=== PATIENT | female | born 1940 | race Caucasian/White ===

== ENCOUNTER 2018-02-11 17:09 | Inpatient (IN) | payer MEDICARE, OTHER ==
[~2018-02-11] VITALS: Ht 160 cm; Wt 105.3 kg
[~2018-02-11 17:09] MED LIST: ALLO100T30 PO; AMLO5TAB7 PO; ASCO-96 PO; ASPI-515 PO; ATOR40TA78 PO; CARV12.52 PO; CLON0.1T PO; CLON0.25 PO; FURO20TA3 PO; GABA-826 PO; HYDR-3237 PO; INSU100V8 SQ; LEVO50TA5 PO; METH454P PO; NOVALOG SC; OMEGA 3 PO; SITA50TA PO; SLOW MAG PO; SOLI5TAB2 PO; VALS160T3 PO
[2018-02-11 18:00] LABS: BASOPHILS # (AUTO) 0.06 x10^3/uL (0-0.1); BASOPHILS % (AUTO) 0 % (0-1); EOSINOPHILS # (AUTO) 0.16 x10^3/uL (0-0.4); EOSINOPHILS % (AUTO) 1 % (1-7); LYMPHOCYTES # (AUTO) 1.92 x10^3/uL (1-3.4); LYMPHOCYTES % (AUTO) 13 % (22-44); MD NO; MEAN CORPUSCULAR HGB CONC 33.2 g/dL (32.4-35.8); MEAN CORPUSCULAR VOLUME 96.2 fL (80-100); MEAN PLATELET VOLUME 8.5 fL (7.4-10.4); MONOCYTES # (AUTO) 1.08 x10^3/uL (0.2-0.8); MONOCYTES % (AUTO) 8 % (2-9); NEUTROPHILS # (AUTO) 11.16 x10^3/uL (1.8-6.8); NEUTROPHILS % (AUTO) 78 % (42-75); PLATELET COUNT 359 x10^3/uL (130-400); RED BLOOD COUNT 4.56 x10^6/uL (3.82-5.3); RED CELL DISTRIBUTION WIDTH 16.7 % (9.6-15.2)
[2018-02-11 18:08] LABS: ALBUMIN 2.9 g/dL (3.4-5.0); ANION GAP 5 mmol/L (5-15); CALCIUM 9.7 mg/dL (8.5-10.1); CHLORIDE 113 mmol/L (98-107)
[2018-02-11 18:13] LABS: ALANINE AMINOTRANSFERASE 24 U/L (12-78); ALKALINE PHOSPHATASE 200 U/L (45-117); BILIRUBIN,TOTAL 1.1 mg/dL (0.2-1.0); TOTAL PROTEIN 5.8 g/dL (6.4-8.2)
[2018-02-11] MEDS ORDERED: LORA0.5T PO (18:14)
[2018-02-11] MEDS ORDERED: CEFTRIAXONE 1,000 MG in SODIUM CHLORIDE 0.9% 50 ML IVPB ONE (19:00)
[2018-02-11] MEDS ORDERED: CEFTRIAXONE PMX 1GM/50ML 50 ML ONE (19:33)
[2018-02-11] MEDS ORDERED: ACETAMINOPHEN 325 MG TABLET PO PRN (20:30)
[2018-02-11] MEDS ORDERED: POLYETHYLENE GLYCOL 17 GM PACKET PO PRN (20:30)
[2018-02-11] MEDS ORDERED: GABAPENTIN 300 MG CAPSULE PO PRN (20:30)
[2018-02-11] MEDS ORDERED: PROMETHAZINE 25 MG/ML, 1ML IM PRN (20:30)
[2018-02-11] MEDS ORDERED: ONDANSETRON 2MG/ML, 2ML IVPush PRN (20:30)
[2018-02-11] MEDS ORDERED: morphine SULFATE 10 MG/ML, 1ML IVPush PRN (20:30)
[2018-02-11] MEDS ORDERED: FUROSEMIDE 40 MG/4 ML IV ONE (20:30)
[2018-02-11] MEDS ORDERED: OXYcodone/APAP 5/325MG TABLET PO PRN (20:30)
[2018-02-11] MEDS ORDERED: ONDANSETRON ODT 4 MG PO PRN (20:30)
[2018-02-11] MEDS ORDERED: SODIUM CHLORIDE FLUSH 10ML SYR IVF PRN (20:30)
[2018-02-11] MEDS ORDERED: BISACODYL 10 MG SUPP PR PRN (20:30)
[2018-02-11 20:57] LABS: FREE T4 (FREE THYROXINE) 1.54 ng/dL (0.76-1.46); THYROID STIMULATING HORMONE 2.4 mIU/L (0.358-3.740)
[2018-02-11 20:58] LABS: HEMOGLOBIN A1C 7.7 % (4.2-6.3)
[2018-02-11] MEDS ORDERED: CLONIDINE HCL 0.5 MG PO SCH (21:00)
[2018-02-11] MEDS: INSULIN LISPRO 100 UNITS/ML, PEN SQ-INSULIN SCH (21:00)
[2018-02-11] MEDS ORDERED: ENOXAPARIN 40 MG/0.4 ML SQ SCH (21:30)
[2018-02-11] MEDS: GABAPENTIN 100 MG CAPSULE PO SCH (21:35)
[2018-02-11] MEDS: ATORVASTATIN 40 MG TABLET PO SCH (21:35)
[2018-02-11] MEDS: ALLOPURINOL 100 MG TABLET PO SCH (21:35)
[2018-02-11] MEDS: CEFTAROLINE 600 MG in SODIUM CHLORIDE 0.9% 100 ML IV SCH (21:59)
[2018-02-11] MEDS: OXYBUTYNIN CHLORIDE 5 MG TABLET PO SCH (21:59)
[2018-02-11] MEDS: INSULIN GLARGINE 100 UNITS/ML, PEN SQ-INSULIN SCH (22:01)
[2018-02-11 22:50] VITALS: BP 200/94
[2018-02-11 23:00] VITALS: BP 198/94
[2018-02-11 23:15] VITALS: BP 185/82
[2018-02-12] MEDS: LABETALOL 5MG/ML, 20ML IVPush PRN ×3 (00:15→17:22)
[2018-02-12 00:23] LABS: MICROSCOPIC INDICATED
[2018-02-12 00:25] LABS: CULTURE INDICATED? NO
[2018-02-12 02:00] VITALS: BP 198/94
[2018-02-12] MEDS: hydrALAzine 20 MG/ML, 1ML IVPush PRN (03:14)
[2018-02-12 05:31] VITALS: BP 184/71
[2018-02-12] MEDS: LEVOTHYROXINE 50 MCG TABLET PO SCH (05:31)
[2018-02-12] MEDS: CARVEDILOL 6.25 MG TABLET PO SCH ×2 (05:31→17:17)
[2018-02-12 05:44] LABS: BASOPHILS # (AUTO) 0.04 x10^3/uL (0-0.1); BASOPHILS % (AUTO) 0 % (0-1); EOSINOPHILS # (AUTO) 0.15 x10^3/uL (0-0.4); EOSINOPHILS % (AUTO) 1 % (1-7); LYMPHOCYTES # (AUTO) 1.88 x10^3/uL (1-3.4); LYMPHOCYTES % (AUTO) 13 % (22-44); MD NO; MEAN CORPUSCULAR HEMOGLOBIN 32.1 pg (27.0-34.8); MEAN CORPUSCULAR VOLUME 97.2 fL (80-100); MEAN PLATELET VOLUME 8.9 fL (7.4-10.4); MONOCYTES # (AUTO) 1.42 x10^3/uL (0.2-0.8); MONOCYTES % (AUTO) 10 % (2-9); NEUTROPHILS % (AUTO) 77 % (42-75); PLATELET COUNT 322 x10^3/uL (130-400); RED CELL DISTRIBUTION WIDTH 16.4 % (9.6-15.2)
[2018-02-12 05:57] LABS: CHLORIDE 111 mmol/L (98-107)
[2018-02-12 06:08] LABS: ALANINE AMINOTRANSFERASE 20 U/L (12-78); ALBUMIN 2.5 g/dL (3.4-5.0); ALKALINE PHOSPHATASE 175 U/L (45-117); ANION GAP 10 mmol/L (5-15); BILIRUBIN,TOTAL 0.7 mg/dL (0.2-1.0); CALCIUM 8.9 mg/dL (8.5-10.1); CHOL/HDL RATIO 2.1; CHOLESTEROL, TOTAL 107 mg/dL (140-239); CREATININE 1.06 mg/dL (0.55-1.02); HDL CHOL % 49 % (28-40); HDL CHOLESTEROL (DIRECT) 52 mg/dL (40-60); LDL CHOLESTEROL,CALCULATED 36 mg/dL (54-169); LDL/HDL RATIO 0.7 (0.5-3.0); TOTAL PROTEIN 5.4 g/dL (6.4-8.2); TRIGLYCERIDES 95 mg/dL (50-200); VLDL CHOLESTEROL 19 mg/dL (0-25)
[2018-02-12 06:44] VITALS: BP 164/67
[2018-02-12] MEDS: INSULIN LISPRO 100 UNITS/ML, PEN SQ-INSULIN SCH ×4 (07:00→21:36)
[2018-02-12] MEDS ORDERED: FUROSEMIDE 20 MG/2 ML IV SCH (07:30)
[2018-02-12] MEDS ORDERED: LINAGLIPTIN 5 MG TAB PO SCH (09:00)
[2018-02-12] MEDS: LORazepam 0.5MG TABLET PO SCH (10:00)
[2018-02-12] MEDS: ASPIRIN 81 MG TABLET EC PO SCH (10:00)
[2018-02-12] MEDS: AMLODIPINE 10 MG TAB PO SCH (10:00)
[2018-02-12] MEDS: ASCORBIC ACID 500 MG TABLET PO SCH (10:00)
[2018-02-12] MEDS: OXYBUTYNIN CHLORIDE 5 MG TABLET PO SCH ×2 (10:00→21:35)
[2018-02-12] MEDS: GABAPENTIN 100 MG CAPSULE PO SCH ×2 (10:00→21:34)
[2018-02-12] MEDS: CEFTAROLINE 600 MG in SODIUM CHLORIDE 0.9% 100 ML IV SCH ×2 (10:01→21:37)
[2018-02-12] MEDS: VALSARTAN 160 MG TABLET PO SCH (10:01)
[2018-02-12] MEDS: ALLOPURINOL 100 MG TABLET PO SCH ×2 (10:01→21:35)
[2018-02-12] MEDS ORDERED: PHARMACY MAY ADJ FOR RENAL FX MC PRN (11:30)
[2018-02-12 12:19] VITALS: BP 178/71
[2018-02-12] MEDS: DOCUSATE 100 MG CAPSULE PO PRN ×2 (17:34→23:26)
[2018-02-12 20:00] VITALS: BP 150/72
[2018-02-12] MEDS: ATORVASTATIN 40 MG TABLET PO SCH (21:34)
[2018-02-12] MEDS: INSULIN GLARGINE 100 UNITS/ML, PEN SQ-INSULIN SCH (21:37)
[2018-02-13 02:00] VITALS: BP 147/68
[2018-02-13] MEDS: LEVOTHYROXINE 50 MCG TABLET PO SCH (05:13)
[2018-02-13] MEDS: CARVEDILOL 6.25 MG TABLET PO SCH ×2 (05:14→17:41)
[2018-02-13 07:31] VITALS: BP_SYST 145; BP_SYST 162; BP_DIAS 58; BP_DIAS 60
[2018-02-13] MEDS: INSULIN LISPRO 100 UNITS/ML, PEN SQ-INSULIN SCH ×4 (08:33→21:09)
[2018-02-13] MEDS: OXYBUTYNIN CHLORIDE 5 MG TABLET PO SCH ×2 (08:34→21:06)
[2018-02-13] MEDS: ASCORBIC ACID 500 MG TABLET PO SCH (08:34)
[2018-02-13] MEDS: ALLOPURINOL 100 MG TABLET PO SCH ×2 (08:34→21:07)
[2018-02-13] MEDS: ASPIRIN 81 MG TABLET EC PO SCH (08:34)
[2018-02-13] MEDS: GABAPENTIN 100 MG CAPSULE PO SCH ×2 (08:34→21:07)
[2018-02-13] MEDS: AMLODIPINE 10 MG TAB PO SCH (08:34)
[2018-02-13] MEDS: LORazepam 0.5MG TABLET PO SCH (08:34)
[2018-02-13] MEDS: VALSARTAN 160 MG TABLET PO SCH (08:34)
[2018-02-13] MEDS: CEFTAROLINE 600 MG in SODIUM CHLORIDE 0.9% 100 ML IV SCH ×2 (09:16→21:10)
[2018-02-13] MEDS ORDERED: FUROSEMIDE 40 MG/4 ML IV ONE (10:30)
[2018-02-13] MEDS ORDERED: POTASSIUM CHLORIDE 20 MEQ TAB.ER.PRT PO ONE (10:30)
[2018-02-13 12:12] LABS: MEAN CORPUSCULAR HEMOGLOBIN 31.6 pg (27.0-34.8); MEAN CORPUSCULAR HGB CONC 32.9 g/dL (32.4-35.8); MEAN CORPUSCULAR VOLUME 96.3 fL (80-100); MEAN PLATELET VOLUME 8.4 fL (7.4-10.4); PLATELET COUNT 303 x10^3/uL (130-400); RED BLOOD COUNT 4.18 x10^6/uL (3.82-5.3)
[2018-02-13 12:23] LABS: ANION GAP 9 mmol/L (5-15); CALCIUM 9.4 mg/dL (8.5-10.1); CHLORIDE 109 mmol/L (98-107); CREATININE 1.39 mg/dL (0.55-1.02)
[2018-02-13 12:34] VITALS: BP 157/64
[2018-02-13 13:16] LABS: BASOPHILS # (AUTO) 0.09 x10^3/uL (0-0.1); BASOPHILS % (AUTO) 0 % (0-1); EOSINOPHILS # (AUTO) 0.16 x10^3/uL (0-0.4); EOSINOPHILS % (AUTO) 1 % (1-7); LYMPHOCYTES # (AUTO) 1.37 x10^3/uL (1-3.4); LYMPHOCYTES % (AUTO) 7 % (22-44); MD SCAN; MONOCYTES # (AUTO) 1.06 x10^3/uL (0.2-0.8); MONOCYTES % (AUTO) 6 % (2-9); NEUTROPHILS # (AUTO) 16.52 x10^3/uL (1.8-6.8); NEUTROPHILS % (AUTO) 86 % (42-75)
[2018-02-13 18:26] VITALS: BP 156/93
[2018-02-13] MEDS: ATORVASTATIN 40 MG TABLET PO SCH (21:06)
[2018-02-13] MEDS: INSULIN GLARGINE 100 UNITS/ML, PEN SQ-INSULIN SCH (21:10)
[2018-02-14] VITALS (7 sets, daily range): BP systolic 149–196; BP diastolic 60–74
[2018-02-14 05:34] LABS: ANION GAP 9 mmol/L (5-15); CALCIUM 8.8 mg/dL (8.5-10.1); CHLORIDE 111 mmol/L (98-107)
[2018-02-14] MEDS: CARVEDILOL 6.25 MG TABLET PO SCH ×2 (05:35→17:27)
[2018-02-14] MEDS: LEVOTHYROXINE 50 MCG TABLET PO SCH (05:35)
[2018-02-14 05:36] LABS: CREATININE 1.34 mg/dL (0.55-1.02)
[2018-02-14 05:42] LABS: BASOPHILS # (AUTO) 0.06 x10^3/uL (0-0.1); BASOPHILS % (AUTO) 1 % (0-1); EOSINOPHILS % (AUTO) 2 % (1-7); LYMPHOCYTES # (AUTO) 1.66 x10^3/uL (1-3.4); LYMPHOCYTES % (AUTO) 12 % (22-44); MD NO; MEAN CORPUSCULAR HGB CONC 32.7 g/dL (32.4-35.8); MEAN CORPUSCULAR VOLUME 97.8 fL (80-100); MONOCYTES # (AUTO) 1.22 x10^3/uL (0.2-0.8); MONOCYTES % (AUTO) 9 % (2-9); NEUTROPHILS # (AUTO) 10.59 x10^3/uL (1.8-6.8); NEUTROPHILS % (AUTO) 77 % (42-75); PLATELET COUNT 283 x10^3/uL (130-400); RED CELL DISTRIBUTION WIDTH 16.9 % (9.6-15.2)
[2018-02-14] MEDS: INSULIN LISPRO 100 UNITS/ML, PEN SQ-INSULIN SCH ×4 (07:00→21:59)
[2018-02-14] MEDS: VALSARTAN 160 MG TABLET PO SCH (07:58)
[2018-02-14] MEDS ORDERED: MAGNESIUM SULFATE PMX 2GM/50ML 50 ML IV ONE (08:00)
[2018-02-14] MEDS: AMLODIPINE 10 MG TAB PO SCH (08:12)
[2018-02-14] MEDS: ALLOPURINOL 100 MG TABLET PO SCH ×2 (08:12→21:57)
[2018-02-14] MEDS: ASCORBIC ACID 500 MG TABLET PO SCH (08:12)
[2018-02-14] MEDS: ASPIRIN 81 MG TABLET EC PO SCH (08:12)
[2018-02-14] MEDS: LORazepam 0.5MG TABLET PO SCH (08:12)
[2018-02-14] MEDS: GABAPENTIN 100 MG CAPSULE PO SCH ×2 (08:12→21:57)
[2018-02-14] MEDS: OXYBUTYNIN CHLORIDE 5 MG TABLET PO SCH ×2 (08:16→21:57)
[2018-02-14] MEDS: CEFTAROLINE 600 MG in SODIUM CHLORIDE 0.9% 100 ML IV SCH ×2 (11:26→21:57)
[2018-02-14] MEDS ORDERED: FURO40TA6 PO (14:49)
[2018-02-14] MEDS ORDERED: CEFD300C37 PO (14:49)
[2018-02-14] MEDS ORDERED: DOXY100T PO (14:49)
[2018-02-14] MEDS: hydrALAzine 20 MG/ML, 1ML IVPush PRN (16:06)
[2018-02-14] MEDS: ATORVASTATIN 40 MG TABLET PO SCH (21:57)
[2018-02-14] MEDS: INSULIN GLARGINE 100 UNITS/ML, PEN SQ-INSULIN SCH (21:58)
[2018-02-15 01:31] VITALS: BP 156/63
[2018-02-15 06:03] VITALS: BP 126/55
[2018-02-15] MEDS: CARVEDILOL 6.25 MG TABLET PO SCH (06:06)
[2018-02-15] MEDS: LEVOTHYROXINE 50 MCG TABLET PO SCH (06:06)
[2018-02-15] MEDS: ASPIRIN 81 MG TABLET EC PO SCH (07:43)
[2018-02-15] MEDS: GABAPENTIN 100 MG CAPSULE PO SCH (07:43)
[2018-02-15] MEDS: ALLOPURINOL 100 MG TABLET PO SCH (07:43)
[2018-02-15] MEDS: ASCORBIC ACID 500 MG TABLET PO SCH (07:43)
[2018-02-15] MEDS: LORazepam 0.5MG TABLET PO SCH (07:43)
[2018-02-15] MEDS: OXYBUTYNIN CHLORIDE 5 MG TABLET PO SCH (07:43)
[2018-02-15] MEDS: VALSARTAN 160 MG TABLET PO SCH (07:44)
[2018-02-15 07:52] VITALS: BP 181/65
[2018-02-15] MEDS: INSULIN LISPRO 100 UNITS/ML, PEN SQ-INSULIN SCH ×2 (07:56→11:09)
[2018-02-15] MEDS: AMLODIPINE 10 MG TAB PO SCH (07:56)
[2018-02-15] MEDS: CEFTAROLINE 600 MG in SODIUM CHLORIDE 0.9% 100 ML IV SCH (11:12)
== END 2018-02-15 13:50 | DRG 872 ==
LOC: ED 18:19 → EDIP 20:04 → 4WST 20:48
PROVIDERS: ADMIT Internal Medicine; ATTEND Internal Medicine
DX: A41.9 Sepsis, unspecified organism (principal); L03.115 Cellulitis of right lower limb; Z68.41 Body mass index [BMI] 40.0-44.9, adult; E44.0 Moderate protein-calorie malnutrition; L03.116 Cellulitis of left lower limb; E03.9 Hypothyroidism, unspecified; E11.51 Type 2 diabetes mellitus with diabetic peripheral angiopathy without gangrene; E66.01 Morbid (severe) obesity due to excess calories; E78.5 Hyperlipidemia, unspecified; E87.6 Hypokalemia; G47.33 Obstructive sleep apnea (adult) (pediatric); I08.3 Combined rheumatic disorders of mitral, aortic and tricuspid valves; I11.9 Hypertensive heart disease without heart failure; Z96.652 Presence of left artificial knee joint; M10.9 Gout, unspecified; N19 Unspecified kidney failure; N31.9 Neuromuscular dysfunction of bladder, unspecified; S81.801A Unspecified open wound, right lower leg, initial encounter; X58.XXXA Exposure to other specified factors, initial encounter; Z90.710 Acquired absence of both cervix and uterus; Z87.891 Personal history of nicotine dependence; Z90.49 Acquired absence of other specified parts of digestive tract; Y93.89 Activity, other specified; Y92.89 Other specified places as the place of occurrence of the external cause; Y99.8 Other external cause status; Z79.899 Other long term (current) drug therapy; Z79.4 Long term (current) use of insulin
CPT/HCPCS: 0399T; 36415; 80048; 80053; 80061; 81001; 82962; 83036; 83605; 83735; 84100; 84145; 84439; 84443; 85025; 87040; 93005; 93306; 99285; G0378; J0696; J0712; J1650; J1940; J0360; J1815; J3475

== ENCOUNTER 2018-04-05 19:24 | Inpatient (IN) | payer MEDICARE, OTHER ==
[~2018-04-05] VITALS: Ht 160 cm; Wt 101.8 kg
[~2018-04-05 19:24] MED LIST changes: +CEFD300C37 PO; +DOXY100T PO; +FURO40TA6 PO; +LORA0.5T PO
[2018-04-05 20:14] LABS: BASOPHILS % (AUTO) 1 % (0-1); EOSINOPHILS # (AUTO) 0.17 x10^3/uL (0-0.4); EOSINOPHILS % (AUTO) 1 % (1-7); LYMPHOCYTES # (AUTO) 2.14 x10^3/uL (1-3.4); LYMPHOCYTES % (AUTO) 16 % (22-44); MD NO; MEAN PLATELET VOLUME 8.4 fL (7.4-10.4); MONOCYTES # (AUTO) 1.17 x10^3/uL (0.2-0.8); MONOCYTES % (AUTO) 9 % (2-9); NEUTROPHILS # (AUTO) 10.04 x10^3/uL (1.8-6.8); NEUTROPHILS % (AUTO) 74 % (42-75); PLATELET COUNT 431 x10^3/uL (130-400); RED BLOOD COUNT 3.17 x10^6/uL (3.82-5.3)
[2018-04-05 20:25] LABS: ALANINE AMINOTRANSFERASE 17 U/L (12-78); ALBUMIN 2.6 g/dL (3.4-5.0); ANION GAP 9 mmol/L (5-15); CALCIUM 9.1 mg/dL (8.5-10.1); CHLORIDE 108 mmol/L (98-107); CREATININE 1.04 mg/dL (0.55-1.02)
[2018-04-05 20:28] LABS: ALKALINE PHOSPHATASE 130 U/L (45-117); BILIRUBIN,TOTAL 0.5 mg/dL (0.2-1.0); TOTAL PROTEIN 5.5 g/dL (6.4-8.2)
[2018-04-05 20:48] LABS: INTERNATIONAL NORMALIZED RATIO 1.07 (0.93-1.1); PROTHROMBIN TIME 11.1 Seconds (9.6-11.5)
[2018-04-05] MEDS ORDERED: ONDANSETRON ODT 4 MG PO PRN (23:30)
[2018-04-05] MEDS ORDERED: BISACODYL 10 MG SUPP PR PRN (23:30)
[2018-04-05] MEDS ORDERED: POLYETHYLENE GLYCOL 17 GM PACKET PO PRN (23:30)
[2018-04-05] MEDS ORDERED: INSULIN GLARGINE 100 UNITS/ML, PEN SQ-INSULIN SCH (23:30)
[2018-04-05 23:56] LABS: HEMOGLOBIN A1C 7.8 % (4.2-6.3)
[2018-04-06] VITALS (10 sets, daily range): BP systolic 139–209; BP diastolic 62–97
[2018-04-06] MEDS: GABAPENTIN 100 MG CAPSULE PO SCH ×3 (01:50→20:34)
[2018-04-06] MEDS: ACETAMINOPHEN 325 MG TABLET PO PRN ×4 (01:50→22:41)
[2018-04-06] MEDS: ATORVASTATIN 40 MG TABLET PO SCH ×2 (01:50→20:33)
[2018-04-06] MEDS: ALLOPURINOL 100 MG TABLET PO SCH ×3 (01:51→20:34)
[2018-04-06] MEDS: LISINOPRIL 20 MG TABLET PO SCH ×2 (01:51→11:15)
[2018-04-06] MEDS: SODIUM CHLORIDE FLUSH 10ML SYR IVF SCH ×3 (01:51→20:32)
[2018-04-06] MEDS: FUROSEMIDE 40 MG TABLET PO SCH ×2 (01:51→11:18)
[2018-04-06] MEDS: hydrALAzine 20 MG/ML, 1ML IVPush PRN ×2 (02:42→11:13)
[2018-04-06 03:41] LABS: CULTURE INDICATED? YES; MICROSCOPIC INDICATED
[2018-04-06] MEDS ORDERED: INSU100C SQ-INSULIN (04:03)
[2018-04-06 05:00] LABS: BASOPHILS # (AUTO) 0.11 x10^3/uL (0-0.1); BASOPHILS % (AUTO) 1 % (0-1); EOSINOPHILS # (AUTO) 0.18 x10^3/uL (0-0.4); EOSINOPHILS % (AUTO) 1 % (1-7); LYMPHOCYTES # (AUTO) 2.46 x10^3/uL (1-3.4); LYMPHOCYTES % (AUTO) 18 % (22-44); MD NO; MEAN CORPUSCULAR HEMOGLOBIN 32.1 pg (27.0-34.8); MEAN CORPUSCULAR HGB CONC 33.3 g/dL (32.4-35.8); MEAN CORPUSCULAR VOLUME 96.3 fL (80-100); MEAN PLATELET VOLUME 8.5 fL (7.4-10.4); MONOCYTES # (AUTO) 1.41 x10^3/uL (0.2-0.8); MONOCYTES % (AUTO) 10 % (2-9); NEUTROPHILS # (AUTO) 9.89 x10^3/uL (1.8-6.8); NEUTROPHILS % (AUTO) 70 % (42-75); PLATELET COUNT 415 x10^3/uL (130-400); RED BLOOD COUNT 3.08 x10^6/uL (3.82-5.3); RED CELL DISTRIBUTION WIDTH 16.3 % (9.6-15.2)
[2018-04-06 05:10] LABS: ALBUMIN 2.6 g/dL (3.4-5.0); ANION GAP 10 mmol/L (5-15); CALCIUM 8.6 mg/dL (8.5-10.1); CHLORIDE 109 mmol/L (98-107)
[2018-04-06 05:13] LABS: ALANINE AMINOTRANSFERASE 16 U/L (12-78); ALKALINE PHOSPHATASE 118 U/L (45-117); BILIRUBIN,TOTAL 0.5 mg/dL (0.2-1.0); CREATININE 0.86 mg/dL (0.55-1.02); TOTAL PROTEIN 5.3 g/dL (6.4-8.2)
[2018-04-06] MEDS: CARVEDILOL 12.5 MG TABLET PO SCH ×2 (05:52→17:18)
[2018-04-06] MEDS ORDERED: CEFTRIAXONE PMX 1GM/50ML 50 ML IV SCH (08:00)
[2018-04-06] MEDS ORDERED: POTASSIUM CHLORIDE 20 MEQ TAB.ER.PRT PO ONE (08:00)
[2018-04-06] MEDS ORDERED: LORazepam 0.5MG TABLET PO SCH (09:00)
[2018-04-06] MEDS: LEVOTHYROXINE 50 MCG TABLET PO SCH (11:16)
[2018-04-06] MEDS: ASCORBIC ACID 500 MG TABLET PO SCH (11:18)
[2018-04-06] MEDS: SENNA/DOCUSATE TABLET PO SCH (11:18)
[2018-04-06] MEDS: TEMPLATE NON-FORMULARY MED. (Sitagliptin Phosphate** (Januvia**) 50 MG) HOMEMEDPO SCH (11:22)
[2018-04-06] MEDS ORDERED: OLOP2.5D6 EACHEYE (13:17)
[2018-04-06] MEDS ORDERED: SOLI5TAB2 PO (13:17)
[2018-04-06] MEDS ORDERED: LOSA50TA7 PO (13:17)
[2018-04-06] MEDS ORDERED: HYDR-3342 PO (13:17)
[2018-04-06] MEDS: ENALAPRILAT 1.25 MG/ML, 2ML IVPush PRN (17:19)
[2018-04-06] MEDS ORDERED: LABETALOL 5MG/ML, 20ML IVPush PRN (18:00)
[2018-04-06] MEDS: FUROSEMIDE 20 MG/2 ML IVPush SCH (18:22)
[2018-04-06] MEDS ORDERED: hydrALAzine 20 MG/ML, 1ML IVPush PRN (19:30)
[2018-04-06] MEDS: AMPICILLIN/SULBACTAM 3 GM in SODIUM CHLORIDE 0.9% 100 ML IV SCH (19:54)
[2018-04-06] MEDS: LOSARTAN 50MG TABLET PO SCH (20:34)
[2018-04-06] MEDS: INSULIN GLARGINE 100 UNITS/ML, PEN SQ-INSULIN SCH (20:37)
[2018-04-06] MEDS ORDERED: CLONIDINE HCL 0.5 MG PO SCH (21:00)
[2018-04-06] MEDS ORDERED: INSULIN GLARGINE 100 UNITS/ML, PEN SQ-INSULIN SCH (21:00)
[2018-04-06] MEDS: LORazepam 0.5MG TABLET PO PRN (22:42)
[2018-04-07] VITALS (7 sets, daily range): BP systolic 146–186; BP diastolic 55–78
[2018-04-07] MEDS: AMPICILLIN/SULBACTAM 3 GM in SODIUM CHLORIDE 0.9% 100 ML IV SCH ×4 (02:05→20:20)
[2018-04-07 05:19] LABS: BASOPHILS # (AUTO) 0.06 x10^3/uL (0-0.1); BASOPHILS % (AUTO) 1 % (0-1); EOSINOPHILS # (AUTO) 0.26 x10^3/uL (0-0.4); EOSINOPHILS % (AUTO) 2 % (1-7); LYMPHOCYTES # (AUTO) 2.31 x10^3/uL (1-3.4); LYMPHOCYTES % (AUTO) 17 % (22-44); MD NO; MEAN CORPUSCULAR HEMOGLOBIN 31.1 pg (27.0-34.8); MEAN CORPUSCULAR HGB CONC 32.2 g/dL (32.4-35.8); MEAN CORPUSCULAR VOLUME 96.8 fL (80-100); MEAN PLATELET VOLUME 8.4 fL (7.4-10.4); MONOCYTES # (AUTO) 0.95 x10^3/uL (0.2-0.8); MONOCYTES % (AUTO) 7 % (2-9); NEUTROPHILS # (AUTO) 9.98 x10^3/uL (1.8-6.8); NEUTROPHILS % (AUTO) 74 % (42-75); PLATELET COUNT 390 x10^3/uL (130-400); RED BLOOD COUNT 2.79 x10^6/uL (3.82-5.3); RED CELL DISTRIBUTION WIDTH 17.1 % (9.6-15.2)
[2018-04-07 05:24] LABS: % IRON SATURATION 15 % (20-55); ALBUMIN 2.7 g/dL (3.4-5.0); ANION GAP 9 mmol/L (5-15); CALCIUM 8.7 mg/dL (8.5-10.1); CHLORIDE 110 mmol/L (98-107); CREATININE 0.89 mg/dL (0.55-1.02); IRON LEVEL 35 mcg/dL (50-170); TOTAL IRON BINDING CAPACITY 226 mcg/dL (250-450)
[2018-04-07] MEDS: CARVEDILOL 12.5 MG TABLET PO SCH ×2 (05:41→17:22)
[2018-04-07] MEDS: POTASSIUM CHLORIDE 20 MEQ TAB.ER.PRT PO SCH ×2 (08:00→20:20)
[2018-04-07] MEDS: LOSARTAN 50MG TABLET PO SCH ×2 (08:01→20:20)
[2018-04-07] MEDS: GABAPENTIN 100 MG CAPSULE PO SCH ×2 (08:01→20:20)
[2018-04-07] MEDS: LEVOTHYROXINE 50 MCG TABLET PO SCH (08:01)
[2018-04-07] MEDS: ALLOPURINOL 100 MG TABLET PO SCH ×2 (08:01→20:20)
[2018-04-07] MEDS: ASCORBIC ACID 500 MG TABLET PO SCH (08:01)
[2018-04-07] MEDS: FUROSEMIDE 20 MG/2 ML IVPush SCH ×2 (08:02→16:27)
[2018-04-07] MEDS: TEMPLATE NON-FORMULARY MED. (Sitagliptin Phosphate** (Januvia**) 50 MG) HOMEMEDPO SCH (08:02)
[2018-04-07] MEDS: SENNA/DOCUSATE TABLET PO SCH (08:02)
[2018-04-07] MEDS: SODIUM CHLORIDE FLUSH 10ML SYR IVF SCH ×4 (08:03→20:21)
[2018-04-07] MEDS ORDERED: LOSARTAN 50MG TABLET PO SCH (09:00)
[2018-04-07] MEDS ORDERED: FUROSEMIDE 40 MG TABLET PO SCH (09:00)
[2018-04-07] MEDS ORDERED: COCAINE TOPICAL SOLN 4%, 4ML TP ONE (09:00)
[2018-04-07] MEDS ORDERED: GLUCAGON 1 MG IM PRN (09:30)
[2018-04-07] MEDS ORDERED: DEXTROSE 50%, 50ML SYRINGE IVPush PRN (09:30)
[2018-04-07] MEDS ORDERED: DEXTROSE 4 GM TAB.CHEW PO PRN (09:30)
[2018-04-07] MEDS: INSULIN LISPRO 100 UNITS/ML, PEN SQ-INSULIN SCH ×3 (11:00→20:19)
[2018-04-07] MEDS: ENALAPRILAT 1.25 MG/ML, 2ML IVPush PRN (14:25)
[2018-04-07] MEDS ORDERED: POTASSIUM CHLORIDE 10 MEQ in LACTATED RINGERS 1,000 ML IV SCH (20:00)
[2018-04-07] MEDS: INSULIN GLARGINE 100 UNITS/ML, PEN SQ-INSULIN SCH (20:19)
[2018-04-07] MEDS: FERROUS SULFATE 325 MG TABLET PO SCH (20:20)
[2018-04-07] MEDS: ATORVASTATIN 40 MG TABLET PO SCH (20:20)
[2018-04-07] MEDS: LORazepam 0.5MG TABLET PO PRN (21:42)
[2018-04-08] VITALS (22 sets, daily range): BP systolic 144–215; BP diastolic 57–82
[2018-04-08] MEDS: AMPICILLIN/SULBACTAM 3 GM in SODIUM CHLORIDE 0.9% 100 ML IV SCH ×4 (02:24→20:45)
[2018-04-08] MEDS: ACETAMINOPHEN 325 MG TABLET PO PRN (05:34)
[2018-04-08] MEDS: CARVEDILOL 12.5 MG TABLET PO SCH ×2 (05:34→17:11)
[2018-04-08 05:59] LABS: ALBUMIN 2.6 g/dL (3.4-5.0); ANION GAP 8 mmol/L (5-15); CALCIUM 9.3 mg/dL (8.5-10.1); CHLORIDE 114 mmol/L (98-107); CREATININE 0.93 mg/dL (0.55-1.02)
[2018-04-08 06:05] LABS: MEAN CORPUSCULAR HEMOGLOBIN 32.2 pg (27.0-34.8); MEAN CORPUSCULAR VOLUME 97.6 fL (80-100); MEAN PLATELET VOLUME 8.7 fL (7.4-10.4); PLATELET COUNT 374 x10^3/uL (130-400); RED BLOOD COUNT 2.81 x10^6/uL (3.82-5.3); RED CELL DISTRIBUTION WIDTH 17.1 % (9.6-15.2)
[2018-04-08] MEDS ORDERED: DEXTROSE 5% 1,000 ML IV SCH (06:30)
[2018-04-08 06:39] LABS: BASOPHILS # (AUTO) 0.05 x10^3/uL (0-0.1); BASOPHILS % (AUTO) 0 % (0-1); EOSINOPHILS # (AUTO) 0.38 x10^3/uL (0-0.4); EOSINOPHILS % (AUTO) 3 % (1-7); LYMPHOCYTES # (AUTO) 2.55 x10^3/uL (1-3.4); LYMPHOCYTES % (AUTO) 22 % (22-44); MD SCAN; MONOCYTES # (AUTO) 1.15 x10^3/uL (0.2-0.8); MONOCYTES % (AUTO) 10 % (2-9); NEUTROPHILS # (AUTO) 7.29 x10^3/uL (1.8-6.8); NEUTROPHILS % (AUTO) 64 % (42-75)
[2018-04-08] MEDS: INSULIN LISPRO 100 UNITS/ML, PEN SQ-INSULIN SCH ×4 (07:54→20:35)
[2018-04-08] MEDS: LEVOTHYROXINE 50 MCG TABLET PO SCH (08:03)
[2018-04-08] MEDS: FERROUS SULFATE 325 MG TABLET PO SCH ×2 (08:03→20:32)
[2018-04-08] MEDS: GABAPENTIN 100 MG CAPSULE PO SCH ×2 (08:03→20:32)
[2018-04-08] MEDS: SENNA/DOCUSATE TABLET PO SCH (08:04)
[2018-04-08] MEDS: ALLOPURINOL 100 MG TABLET PO SCH ×2 (08:04→20:33)
[2018-04-08] MEDS: ASCORBIC ACID 500 MG TABLET PO SCH (08:04)
[2018-04-08] MEDS: SODIUM CHLORIDE FLUSH 10ML SYR IVF SCH ×4 (08:04→20:41)
[2018-04-08] MEDS: LOSARTAN 50MG TABLET PO SCH ×2 (08:04→20:32)
[2018-04-08] MEDS: POTASSIUM CHLORIDE 20 MEQ TAB.ER.PRT PO SCH ×2 (08:04→20:32)
[2018-04-08] MEDS ORDERED: AMLODIPINE 2.5 MG TABLET PO SCH (11:00)
[2018-04-08] MEDS: ENALAPRILAT 1.25 MG/ML, 2ML IVPush PRN ×3 (11:01→21:59)
[2018-04-08] MEDS: TEMPLATE NON-FORMULARY MED. (Sitagliptin Phosphate** (Januvia**) 50 MG) HOMEMEDPO SCH (12:27)
[2018-04-08] MEDS: SODIUM CHLORIDE 0.45% 1,000 ML IV SCH (12:35)
[2018-04-08 13:09] LABS: CHLORIDE 112 mmol/L (98-107)
[2018-04-08 13:23] LABS: ANION GAP 8 mmol/L (5-15); CALCIUM 9.3 mg/dL (8.5-10.1)
[2018-04-08] MEDS: LABETALOL 5MG/ML, 20ML IVPush PRN ×3 (14:52→23:09)
[2018-04-08] MEDS ORDERED: AMLODIPINE 2.5 MG TABLET PO ONE (19:00)
[2018-04-08] MEDS: ATORVASTATIN 40 MG TABLET PO SCH (20:32)
[2018-04-08] MEDS: INSULIN GLARGINE 100 UNITS/ML, PEN SQ-INSULIN SCH (20:34)
[2018-04-08] MEDS ORDERED: ENALAPRILAT 1.25 MG/ML, 2ML ONE (21:53)
[2018-04-08] MEDS: LORazepam 0.5MG TABLET PO PRN (21:58)
[2018-04-09] VITALS (10 sets, daily range): BP systolic 148–193; BP diastolic 63–80
[2018-04-09] MEDS: AMPICILLIN/SULBACTAM 3 GM in SODIUM CHLORIDE 0.9% 100 ML IV SCH ×3 (02:50→15:56)
[2018-04-09] MEDS: SODIUM CHLORIDE 0.45% 1,000 ML IV SCH ×2 (04:17→18:02)
[2018-04-09 05:13] LABS: ALBUMIN 2.5 g/dL (3.4-5.0); ANION GAP 7 mmol/L (5-15); CALCIUM 8.8 mg/dL (8.5-10.1); CHLORIDE 112 mmol/L (98-107)
[2018-04-09] MEDS: CARVEDILOL 12.5 MG TABLET PO SCH ×2 (06:14→18:02)
[2018-04-09] MEDS: INSULIN LISPRO 100 UNITS/ML, PEN SQ-INSULIN SCH ×4 (07:00→21:43)
[2018-04-09] MEDS: ENALAPRILAT 1.25 MG/ML, 2ML IVPush PRN ×2 (07:38→18:02)
[2018-04-09] MEDS ORDERED: AMLODIPINE 2.5 MG TABLET PO SCH (09:00)
[2018-04-09] MEDS: TEMPLATE NON-FORMULARY MED. (Sitagliptin Phosphate** (Januvia**) 50 MG) HOMEMEDPO SCH (09:00)
[2018-04-09] MEDS: SENNA/DOCUSATE TABLET PO SCH (09:00)
[2018-04-09] MEDS: SODIUM CHLORIDE FLUSH 10ML SYR IVF SCH ×4 (09:00→21:00)
[2018-04-09] MEDS: POTASSIUM CHLORIDE 20 MEQ TAB.ER.PRT PO SCH ×2 (09:03→21:37)
[2018-04-09] MEDS: LEVOTHYROXINE 50 MCG TABLET PO SCH (09:03)
[2018-04-09] MEDS: GABAPENTIN 100 MG CAPSULE PO SCH ×2 (09:03→21:37)
[2018-04-09] MEDS: ALLOPURINOL 100 MG TABLET PO SCH ×2 (09:03→21:36)
[2018-04-09] MEDS: LOSARTAN 50MG TABLET PO SCH ×2 (09:04→21:39)
[2018-04-09] MEDS: ASCORBIC ACID 500 MG TABLET PO SCH (09:04)
[2018-04-09] MEDS: FERROUS SULFATE 325 MG TABLET PO SCH ×2 (09:04→21:37)
[2018-04-09] MEDS ORDERED: CHLORTHALIDONE 25 MG TABLET PO SCH (12:00)
[2018-04-09 16:14] LABS: CREATININE,URINE RANDOM 52.6 mg/dL
[2018-04-09] MEDS: LABETALOL 5MG/ML, 20ML IVPush PRN (20:00)
[2018-04-09] MEDS: ATORVASTATIN 40 MG TABLET PO SCH (21:36)
[2018-04-09] MEDS: INSULIN GLARGINE 100 UNITS/ML, PEN SQ-INSULIN SCH (21:42)
[2018-04-09] MEDS: AMLODIPINE 5 MG TABLET PO SCH (21:56)
[2018-04-09] MEDS ORDERED: CEFTRIAXONE 1,000 MG IM SCH (22:00)
[2018-04-09] MEDS: LORazepam 0.5MG TABLET PO PRN (23:07)
[2018-04-10] VITALS (7 sets, daily range): BP systolic 149–202; BP diastolic 52–95
[2018-04-10] MEDS: CEFTRIAXONE PMX 1GM/50ML 50 ML IV SCH (00:24)
[2018-04-10] MEDS: ENALAPRILAT 1.25 MG/ML, 2ML IVPush PRN ×3 (02:37→22:29)
[2018-04-10 05:30] LABS: ALBUMIN 2.6 g/dL (3.4-5.0); CALCIUM 8.8 mg/dL (8.5-10.1); CHLORIDE 111 mmol/L (98-107)
[2018-04-10 05:33] LABS: ANION GAP 7 mmol/L (5-15); CREATININE 0.82 mg/dL (0.55-1.02)
[2018-04-10] MEDS: CARVEDILOL 12.5 MG TABLET PO SCH ×2 (06:03→18:23)
[2018-04-10] MEDS: INSULIN LISPRO 100 UNITS/ML, PEN SQ-INSULIN SCH ×4 (07:00→21:14)
[2018-04-10] MEDS: SODIUM CHLORIDE FLUSH 10ML SYR IVF SCH ×4 (08:38→21:00)
[2018-04-10] MEDS: ALLOPURINOL 100 MG TABLET PO SCH ×2 (08:39→21:13)
[2018-04-10] MEDS: LEVOTHYROXINE 50 MCG TABLET PO SCH (08:39)
[2018-04-10] MEDS: ASCORBIC ACID 500 MG TABLET PO SCH (08:39)
[2018-04-10] MEDS: LOSARTAN 50MG TABLET PO SCH ×2 (08:39→21:12)
[2018-04-10] MEDS: GABAPENTIN 100 MG CAPSULE PO SCH ×2 (08:39→21:12)
[2018-04-10] MEDS: AMLODIPINE 5 MG TABLET PO SCH ×2 (08:40→21:13)
[2018-04-10] MEDS: FERROUS SULFATE 325 MG TABLET PO SCH ×2 (08:40→21:13)
[2018-04-10] MEDS: SENNA/DOCUSATE TABLET PO SCH (08:40)
[2018-04-10] MEDS: TEMPLATE NON-FORMULARY MED. (Sitagliptin Phosphate** (Januvia**) 50 MG) HOMEMEDPO SCH (08:41)
[2018-04-10] MEDS ORDERED: CHLORTHALIDONE 25 MG TABLET PO SCH (09:00)
[2018-04-10 11:17] LABS: BASOPHILS # (AUTO) 0.21 x10^3/uL (0-0.1); BASOPHILS % (AUTO) 2 % (0-1); EOSINOPHILS % (AUTO) 4 % (1-7); LYMPHOCYTES # (AUTO) 2.45 x10^3/uL (1-3.4); LYMPHOCYTES % (AUTO) 19 % (22-44); MD NO; MEAN CORPUSCULAR HGB CONC 32.5 g/dL (32.4-35.8); MEAN CORPUSCULAR VOLUME 98.6 fL (80-100); MEAN PLATELET VOLUME 9.1 fL (7.4-10.4); MONOCYTES # (AUTO) 1.09 x10^3/uL (0.2-0.8); MONOCYTES % (AUTO) 8 % (2-9); NEUTROPHILS # (AUTO) 8.93 x10^3/uL (1.8-6.8); NEUTROPHILS % (AUTO) 68 % (42-75); PLATELET COUNT 408 x10^3/uL (130-400); RED BLOOD COUNT 2.92 x10^6/uL (3.82-5.3); RED CELL DISTRIBUTION WIDTH 17.9 % (9.6-15.2)
[2018-04-10 14:02] LABS: OCCULT BLOOD POSITIVE (NEGATIVE)
[2018-04-10] MEDS: LABETALOL 5MG/ML, 20ML IVPush PRN ×2 (17:31→23:22)
[2018-04-10] MEDS: ATORVASTATIN 40 MG TABLET PO SCH (21:13)
[2018-04-10] MEDS: INSULIN GLARGINE 100 UNITS/ML, PEN SQ-INSULIN SCH (21:15)
[2018-04-10] MEDS: LORazepam 0.5MG TABLET PO PRN (22:34)
[2018-04-11] VITALS (9 sets, daily range): BP systolic 154–189; BP diastolic 59–79
[2018-04-11] MEDS: CEFTRIAXONE PMX 1GM/50ML 50 ML IV SCH ×2 (00:44→23:57)
[2018-04-11] MEDS: ENALAPRILAT 1.25 MG/ML, 2ML IVPush PRN ×3 (02:48→17:17)
[2018-04-11] MEDS: LABETALOL 5MG/ML, 20ML IVPush PRN ×2 (04:00→14:27)
[2018-04-11] MEDS: CARVEDILOL 12.5 MG TABLET PO SCH ×2 (06:04→17:17)
[2018-04-11 06:30] LABS: BASOPHILS # (AUTO) 0.04 x10^3/uL (0-0.1); BASOPHILS % (AUTO) 0 % (0-1); EOSINOPHILS % (AUTO) 4 % (1-7); LYMPHOCYTES # (AUTO) 2.37 x10^3/uL (1-3.4); LYMPHOCYTES % (AUTO) 17 % (22-44); MD NO; MEAN CORPUSCULAR HEMOGLOBIN 32.3 pg (27.0-34.8); MEAN CORPUSCULAR HGB CONC 33.1 g/dL (32.4-35.8); MEAN CORPUSCULAR VOLUME 97.6 fL (80-100); MEAN PLATELET VOLUME 8.8 fL (7.4-10.4); MONOCYTES # (AUTO) 1.03 x10^3/uL (0.2-0.8); MONOCYTES % (AUTO) 7 % (2-9); NEUTROPHILS # (AUTO) 10.14 x10^3/uL (1.8-6.8); NEUTROPHILS % (AUTO) 72 % (42-75); PLATELET COUNT 424 x10^3/uL (130-400); RED BLOOD COUNT 2.95 x10^6/uL (3.82-5.3); RED CELL DISTRIBUTION WIDTH 18.1 % (9.6-15.2)
[2018-04-11 06:43] LABS: ALBUMIN 2.6 g/dL (3.4-5.0); ANION GAP 7 mmol/L (5-15); CALCIUM 9.7 mg/dL (8.5-10.1); CHLORIDE 108 mmol/L (98-107)
[2018-04-11 06:46] LABS: CREATININE 0.97 mg/dL (0.55-1.02)
[2018-04-11] MEDS: INSULIN LISPRO 100 UNITS/ML, PEN SQ-INSULIN SCH ×4 (07:00→20:38)
[2018-04-11] MEDS: SODIUM CHLORIDE FLUSH 10ML SYR IVF SCH ×4 (09:00→20:39)
[2018-04-11] MEDS: SENNA/DOCUSATE TABLET PO SCH (09:00)
[2018-04-11] MEDS: FERROUS SULFATE 325 MG TABLET PO SCH ×2 (10:27→20:27)
[2018-04-11] MEDS: ASCORBIC ACID 500 MG TABLET PO SCH (10:28)
[2018-04-11] MEDS: GABAPENTIN 100 MG CAPSULE PO SCH ×2 (10:28→20:27)
[2018-04-11] MEDS: LOSARTAN 50MG TABLET PO SCH ×2 (10:29→20:29)
[2018-04-11] MEDS: CHLORTHALIDONE 25 MG TABLET PO SCH (10:30)
[2018-04-11] MEDS: ALLOPURINOL 100 MG TABLET PO SCH ×2 (10:31→20:28)
[2018-04-11] MEDS: AMLODIPINE 10 MG TAB PO SCH ×2 (10:32→20:27)
[2018-04-11] MEDS: LEVOTHYROXINE 50 MCG TABLET PO SCH (10:33)
[2018-04-11] MEDS: TEMPLATE NON-FORMULARY MED. (Sitagliptin Phosphate** (Januvia**) 50 MG) HOMEMEDPO SCH (10:35)
[2018-04-11] MEDS: ATORVASTATIN 40 MG TABLET PO SCH (20:27)
[2018-04-11] MEDS: INSULIN GLARGINE 100 UNITS/ML, PEN SQ-INSULIN SCH (20:38)
[2018-04-11] MEDS: LORazepam 0.5MG TABLET PO PRN (22:11)
[2018-04-12 00:44] VITALS: BP 157/74
[2018-04-12] MEDS: CARVEDILOL 12.5 MG TABLET PO SCH (05:28)
[2018-04-12 08:40] VITALS: BP 128/72
[2018-04-12] MEDS: INSULIN LISPRO 100 UNITS/ML, PEN SQ-INSULIN SCH ×3 (08:43→16:00)
[2018-04-12] MEDS: TEMPLATE NON-FORMULARY MED. (Sitagliptin Phosphate** (Januvia**) 50 MG) HOMEMEDPO SCH (08:44)
[2018-04-12] MEDS: SODIUM CHLORIDE FLUSH 10ML SYR IVF SCH ×2 (08:45)
[2018-04-12] MEDS: SENNA/DOCUSATE TABLET PO SCH (08:46)
[2018-04-12] MEDS: ASCORBIC ACID 500 MG TABLET PO SCH (08:47)
[2018-04-12] MEDS: ALLOPURINOL 100 MG TABLET PO SCH (08:47)
[2018-04-12] MEDS: LEVOTHYROXINE 50 MCG TABLET PO SCH (08:47)
[2018-04-12] MEDS: AMLODIPINE 10 MG TAB PO SCH (08:47)
[2018-04-12] MEDS: FERROUS SULFATE 325 MG TABLET PO SCH (08:47)
[2018-04-12] MEDS: CHLORTHALIDONE 25 MG TABLET PO SCH (08:48)
[2018-04-12] MEDS: LOSARTAN 50MG TABLET PO SCH (08:48)
[2018-04-12] MEDS: GABAPENTIN 100 MG CAPSULE PO SCH (08:48)
[2018-04-12 09:39] VITALS: BP 116/72
[2018-04-12 13:25] VITALS: BP 149/58
[2018-04-12 15:33] LABS: MICROSCOPIC INDICATED
[2018-04-12 15:36] LABS: CULTURE INDICATED? NO
[2018-04-12] MEDS ORDERED: HYDR-3343 PO (15:54)
[2018-04-12] MEDS ORDERED: LOSA50TA2 PO (15:54)
[2018-04-12] MEDS ORDERED: CHLO25TA PO (15:54)
[2018-04-12] MEDS ORDERED: CARV12.543 PO (15:54)
[2018-04-12] MEDS ORDERED: FERR-51 PO (15:54)
[2018-04-12] MEDS ORDERED: AMLO10TA6 PO (15:54)
== END 2018-04-12 18:03 | disposition home health service (06) | DRG 871 ==
LOC: ED 22:59 → EDIP 23:25 → 4WST 04-06 00:54
PROVIDERS: ADMIT Family Medicine; ATTEND Family Medicine
PROC: 2Y41X5Z Packing of Nasal Region using Packing Material (ICD-10-PCS; principal; 2018-04-05)
DX: A41.9 Sepsis, unspecified organism (principal); E43 Unspecified severe protein-calorie malnutrition; N17.9 Acute kidney failure, unspecified; E87.0 Hyperosmolality and hypernatremia; N39.0 Urinary tract infection, site not specified; L03.211 Cellulitis of face; R04.0 Epistaxis; I16.0 Hypertensive urgency; E11.51 Type 2 diabetes mellitus with diabetic peripheral angiopathy without gangrene; Z68.39 Body mass index [BMI] 39.0-39.9, adult; B96.1 Klebsiella pneumoniae [K. pneumoniae] as the cause of diseases classified elsewhere; D64.9 Anemia, unspecified; E03.9 Hypothyroidism, unspecified; E78.5 Hyperlipidemia, unspecified; E87.6 Hypokalemia; G25.81 Restless legs syndrome; G47.33 Obstructive sleep apnea (adult) (pediatric); I10 Essential (primary) hypertension; M10.9 Gout, unspecified; Z66 Do not resuscitate; F17.200 Nicotine dependence, unspecified, uncomplicated; Z90.710 Acquired absence of both cervix and uterus; Z90.49 Acquired absence of other specified parts of digestive tract; Z91.81 History of falling; Z96.652 Presence of left artificial knee joint; D47.3 Essential (hemorrhagic) thrombocythemia
CPT/HCPCS: 36415; 70450; 80048; 80053; 81001; 82040; 82088; 82272; 82570; 82728; 82962; 83036; 83540; 83550; 84156; 84244; 84443; 85025; 85610; 85730; 87077; 87086; 87186; 93005; 93306; 93975; 99285; G0378; J0295; J0696; J3480; J7070; J0360; J1815; J1940; J7120

== ENCOUNTER 2018-04-24 20:53 | Inpatient (IN) | payer MEDICARE, OTHER ==
[~2018-04-24] VITALS: Ht 157.5 cm; Wt 101.2 kg
[~2018-04-24 20:53] MED LIST changes: +AMLO10TA6 PO; +CARV12.543 PO; +CHLO25TA PO; +FERR-51 PO; +HYDR-3342 PO; +HYDR-3343 PO; +INSU100C SQ-INSULIN; +LOSA50TA2 PO; +LOSA50TA7 PO; +OLOP2.5D6 EACHEYE
[2018-04-24 21:50] LABS: BASOPHILS # (AUTO) 0.06 x10^3/uL (0-0.1); BASOPHILS % (AUTO) 1 % (0-1); EOSINOPHILS # (AUTO) 0.02 x10^3/uL (0-0.4); EOSINOPHILS % (AUTO) 0 % (1-7); LYMPHOCYTES # (AUTO) 1.67 x10^3/uL (1-3.4); LYMPHOCYTES % (AUTO) 16 % (22-44); MD NO; MEAN CORPUSCULAR HGB CONC 32.9 g/dL (32.4-35.8); MEAN CORPUSCULAR VOLUME 97.3 fL (80-100); MEAN PLATELET VOLUME 8.5 fL (7.4-10.4); MONOCYTES # (AUTO) 1.41 x10^3/uL (0.2-0.8); MONOCYTES % (AUTO) 13 % (2-9); NEUTROPHILS # (AUTO) 7.63 x10^3/uL (1.8-6.8); NEUTROPHILS % (AUTO) 71 % (42-75); PLATELET COUNT 306 x10^3/uL (130-400); RED BLOOD COUNT 3.49 x10^6/uL (3.82-5.3)
[2018-04-24 22:01] LABS: ALANINE AMINOTRANSFERASE 36 U/L (12-78); ALBUMIN 2.8 g/dL (3.4-5.0); ANION GAP 8 mmol/L (5-15); CALCIUM 9.6 mg/dL (8.5-10.1); CHLORIDE 113 mmol/L (98-107); CREATININE 1.23 mg/dL (0.55-1.02)
[2018-04-24 22:05] LABS: ALKALINE PHOSPHATASE 153 U/L (45-117); BILIRUBIN,TOTAL 0.3 mg/dL (0.2-1.0); TOTAL PROTEIN 6.3 g/dL (6.4-8.2); TROPONIN I < 0.015 ng/mL (0.000-0.045)
[2018-04-24] MEDS ORDERED: SODIUM CHLORIDE 0.9% 1,000ML IVBOLUS ONE (22:30)
[2018-04-24 22:32] LABS: OCCULT BLOOD POSITIVE (NEGATIVE)
[2018-04-24] MEDS ORDERED: LORazepam 2 MG/ML, 1ML ONE (22:32)
[2018-04-24] MEDS ORDERED: PROMETHAZINE 25 MG/ML, 1ML ONE (22:32)
[2018-04-24] MEDS ORDERED: ONDANSETRON 2MG/ML, 2ML ONE (22:41)
[2018-04-24] MEDS ORDERED: MORPHINE SULFATE 4 MG/ML, 1ML ONE (22:41)
[2018-04-24 22:48] LABS: MICROSCOPIC AUTO
[2018-04-24 22:56] LABS: CULTURE INDICATED? NO
[2018-04-24] MEDS ORDERED: ONDANSETRON 2MG/ML, 2ML IVPush ONE (23:00)
[2018-04-24] MEDS ORDERED: MORPHINE SULFATE 4 MG/ML, 1ML IVPush PRN (23:00)
[2018-04-24 23:23] LABS: CLOSTRIDIUM DIFFICILE ANTIGEN POSITIVE; CLOSTRIDIUM DIFFICILE TOXIN NEGATIVE (Negative)
[2018-04-24] MEDS ORDERED: VANCOMYCIN PER PHARMACY MC PRN (23:30)
[2018-04-24] MEDS ORDERED: CEFTRIAXONE 1,000 MG IV ONE (23:30)
[2018-04-24] MEDS ORDERED: METRONIDAZOLE PMX 500MG/100ML 100 ML IV ONE (23:30)
[2018-04-24] MEDS ORDERED: VANCOMYCIN 1,900 MG in SODIUM CHLORIDE 0.9% 250 ML IV ONE (23:45)
[2018-04-25] MEDS ORDERED: MORPHINE SULFATE 4 MG/ML, 1ML IVPush PRN (00:30)
[2018-04-25] MEDS ORDERED: MORPHINE SULFATE 4 MG/ML, 1ML ONE (00:30)
[2018-04-25] MEDS ORDERED: SODIUM CHLORIDE 0.9% 1,000 ML IV SCH (01:19)
[2018-04-25] MEDS ORDERED: ENOXAPARIN 40 MG/0.4 ML SQ SCH (01:30)
[2018-04-25] MEDS ORDERED: hydrALAzine 20 MG/ML, 1ML IVPush PRN (01:30)
[2018-04-25 01:57] VITALS: BP 144/70
[2018-04-25] MEDS: VANCOMYCIN 50 MG/ML ORAL SUSP PO SCH ×4 (02:31→20:04)
[2018-04-25 03:03] VITALS: BP 139/72
[2018-04-25] MEDS: ACETAMINOPHEN 325 MG TABLET PO PRN ×3 (04:11→20:03)
[2018-04-25] MEDS ORDERED: OMNIPAQUE 350 MG/ML, 100ML BOTTLE ONE (05:03)
[2018-04-25 05:52] LABS: MEAN CORPUSCULAR HEMOGLOBIN 31.6 pg (27.0-34.8); MEAN CORPUSCULAR HGB CONC 32.4 g/dL (32.4-35.8); MEAN CORPUSCULAR VOLUME 97.6 fL (80-100); MEAN PLATELET VOLUME 8.6 fL (7.4-10.4); PLATELET COUNT 284 x10^3/uL (130-400); RED BLOOD COUNT 3.57 x10^6/uL (3.82-5.3); RED CELL DISTRIBUTION WIDTH 18.6 % (9.6-15.2)
[2018-04-25 06:01] LABS: CALCIUM 9.5 mg/dL (8.5-10.1); CHLORIDE 113 mmol/L (98-107)
[2018-04-25 06:05] LABS: ANION GAP 8 mmol/L (5-15); CREATININE 1.17 mg/dL (0.55-1.02)
[2018-04-25 06:15] LABS: BASOPHILS # (AUTO) 0.02 x10^3/uL (0-0.1); BASOPHILS % (AUTO) 0 % (0-1); EOSINOPHILS # (AUTO) 0.07 x10^3/uL (0-0.4); EOSINOPHILS % (AUTO) 1 % (1-7); LYMPHOCYTES # (AUTO) 2.12 x10^3/uL (1-3.4); LYMPHOCYTES % (AUTO) 15 % (22-44); MD SCAN; MONOCYTES # (AUTO) 1.47 x10^3/uL (0.2-0.8); MONOCYTES % (AUTO) 11 % (2-9); NEUTROPHILS # (AUTO) 10.05 x10^3/uL (1.8-6.8); NEUTROPHILS % (AUTO) 73 % (42-75)
[2018-04-25] MEDS ORDERED: MAGNESIUM SULFATE PMX 2GM/50ML 50 ML IV ONE (06:30)
[2018-04-25] MEDS: INSULIN LISPRO 100 UNITS/ML, PEN SQ-INSULIN SCH ×4 (07:00→20:08)
[2018-04-25 07:35] VITALS: BP 139/70
[2018-04-25] MEDS: POTASSIUM CHLORIDE 20 MEQ TAB.ER.PRT PO SCH ×2 (08:10→17:44)
[2018-04-25 12:00] LABS: OCCULT BLOOD POSITIVE (NEGATIVE)
[2018-04-25 12:37] VITALS: BP 147/79
[2018-04-25 16:05] LABS: OCCULT BLOOD POSITIVE (NEGATIVE)
[2018-04-25] MEDS: AMLODIPINE 10 MG TAB PO SCH (20:02)
[2018-04-25] MEDS: CARVEDILOL 12.5 MG TABLET PO SCH (20:03)
[2018-04-25] MEDS: ALLOPURINOL 100 MG TABLET PO SCH (20:03)
[2018-04-25] MEDS: ATORVASTATIN 40 MG TABLET PO SCH (20:03)
[2018-04-25 20:16] VITALS: BP 137/75
[2018-04-26] MEDS: CEFTRIAXONE PMX 1GM/50ML 50 ML IV SCH (00:02)
[2018-04-26 00:24] VITALS: BP 115/69
[2018-04-26] MEDS ORDERED: SODIUM CHLORIDE 0.9% 1,000 ML IV SCH (01:19)
[2018-04-26] MEDS: VANCOMYCIN 50 MG/ML ORAL SUSP PO SCH ×4 (01:30→20:18)
[2018-04-26] MEDS: LEVOTHYROXINE 50 MCG TABLET PO SCH (05:43)
[2018-04-26 06:45] LABS: BASOPHILS # (AUTO) 0.03 x10^3/uL (0-0.1); BASOPHILS % (AUTO) 0 % (0-1); EOSINOPHILS # (AUTO) 0.18 x10^3/uL (0-0.4); EOSINOPHILS % (AUTO) 3 % (1-7); LYMPHOCYTES # (AUTO) 2.21 x10^3/uL (1-3.4); LYMPHOCYTES % (AUTO) 32 % (22-44); MD NO; MEAN CORPUSCULAR HEMOGLOBIN 32.2 pg (27.0-34.8); MEAN CORPUSCULAR VOLUME 97.8 fL (80-100); MEAN PLATELET VOLUME 8.8 fL (7.4-10.4); MONOCYTES # (AUTO) 0.95 x10^3/uL (0.2-0.8); MONOCYTES % (AUTO) 14 % (2-9); NEUTROPHILS # (AUTO) 3.53 x10^3/uL (1.8-6.8); NEUTROPHILS % (AUTO) 51 % (42-75); PLATELET COUNT 252 x10^3/uL (130-400); RED BLOOD COUNT 3.25 x10^6/uL (3.82-5.3); RED CELL DISTRIBUTION WIDTH 18.8 % (9.6-15.2)
[2018-04-26 06:53] LABS: ALBUMIN 2.4 g/dL (3.4-5.0); ANION GAP 7 mmol/L (5-15); CHLORIDE 117 mmol/L (98-107)
[2018-04-26 06:58] LABS: ALANINE AMINOTRANSFERASE 32 U/L (12-78); ALKALINE PHOSPHATASE 139 U/L (45-117); BILIRUBIN,TOTAL 0.2 mg/dL (0.2-1.0); CREATININE 1.08 mg/dL (0.55-1.02); TOTAL PROTEIN 5.5 g/dL (6.4-8.2)
[2018-04-26 07:14] VITALS: BP 140/63
[2018-04-26] MEDS ORDERED: FENTANYL PF 100 MCG/2ML ONE ×2 (07:29→07:30)
[2018-04-26] MEDS ORDERED: MIDAZOLAM 1 MG/ML, 5ML ONE (07:30)
[2018-04-26] MEDS: INSULIN LISPRO 100 UNITS/ML, PEN SQ-INSULIN SCH ×4 (07:46→20:19)
[2018-04-26] MEDS ORDERED: PANTOPRAZOLE 40 MG IV IVPush SCH (08:00)
[2018-04-26] MEDS: ASCORBIC ACID 500 MG TABLET PO SCH (10:07)
[2018-04-26] MEDS: CARVEDILOL 12.5 MG TABLET PO SCH ×2 (10:07→20:18)
[2018-04-26] MEDS: ALLOPURINOL 100 MG TABLET PO SCH ×2 (10:07→20:19)
[2018-04-26] MEDS: AMLODIPINE 10 MG TAB PO SCH ×2 (10:08→20:18)
[2018-04-26 12:15] VITALS: BP 150/64
[2018-04-26] MEDS: ACETAMINOPHEN 325 MG TABLET PO PRN (20:18)
[2018-04-26] MEDS: ATORVASTATIN 40 MG TABLET PO SCH (20:18)
[2018-04-26 20:39] VITALS: BP 159/74
[2018-04-27] MEDS: CEFTRIAXONE PMX 1GM/50ML 50 ML IV SCH (00:12)
[2018-04-27] MEDS ORDERED: SODIUM CHLORIDE 0.9% 1,000 ML IV SCH (01:19)
[2018-04-27 01:34] VITALS: BP 135/74
[2018-04-27] MEDS: VANCOMYCIN 50 MG/ML ORAL SUSP PO SCH ×3 (01:42→12:26)
[2018-04-27 04:40] LABS: BASOPHILS # (AUTO) 0.04 x10^3/uL (0-0.1); BASOPHILS % (AUTO) 1 % (0-1); EOSINOPHILS # (AUTO) 0.23 x10^3/uL (0-0.4); EOSINOPHILS % (AUTO) 3 % (1-7); LYMPHOCYTES # (AUTO) 2.27 x10^3/uL (1-3.4); LYMPHOCYTES % (AUTO) 31 % (22-44); MD NO; MEAN CORPUSCULAR HEMOGLOBIN 31.9 pg (27.0-34.8); MEAN CORPUSCULAR HGB CONC 32.6 g/dL (32.4-35.8); MEAN PLATELET VOLUME 8.8 fL (7.4-10.4); MONOCYTES % (AUTO) 11 % (2-9); NEUTROPHILS # (AUTO) 4.07 x10^3/uL (1.8-6.8); NEUTROPHILS % (AUTO) 55 % (42-75); PLATELET COUNT 234 x10^3/uL (130-400); RED BLOOD COUNT 3.23 x10^6/uL (3.82-5.3)
[2018-04-27 04:47] LABS: CHLORIDE 115 mmol/L (98-107)
[2018-04-27 04:53] LABS: ANION GAP 6 mmol/L (5-15); CALCIUM 9.3 mg/dL (8.5-10.1); CREATININE 1.09 mg/dL (0.55-1.02)
[2018-04-27] MEDS: LEVOTHYROXINE 50 MCG TABLET PO SCH (05:22)
[2018-04-27] MEDS ORDERED: OMEPRAZOLE 20 MG CAPSULE.DR PO SCH (06:00)
[2018-04-27 07:14] VITALS: BP 159/65
[2018-04-27] MEDS: AMLODIPINE 10 MG TAB PO SCH (08:40)
[2018-04-27] MEDS: ALLOPURINOL 100 MG TABLET PO SCH (08:40)
[2018-04-27] MEDS: CARVEDILOL 12.5 MG TABLET PO SCH (08:40)
[2018-04-27] MEDS: ASCORBIC ACID 500 MG TABLET PO SCH (08:40)
[2018-04-27] MEDS: INSULIN LISPRO 100 UNITS/ML, PEN SQ-INSULIN SCH ×3 (08:40→17:18)
[2018-04-27] MEDS: ACETAMINOPHEN 325 MG TABLET PO PRN (08:40)
[2018-04-27 13:01] VITALS: BP 126/63
[2018-04-27] MEDS ORDERED: OMEP-110 PO (14:00)
[2018-04-27] MEDS ORDERED: VANC1VIA3 PO (14:00)
[2018-04-27] MEDS ORDERED: SULF1TAB24 PO (14:00)
== END 2018-04-27 17:35 | disposition home health service (06) | DRG 380 ==
LOC: ED 21:26 → EDIP 04-25 00:15 → 4NOR 04-25 01:20 → 4WST 04-25 02:45
PROVIDERS: ADMIT Hospitalist; ATTEND Hospitalist
PROC: 0T9B70Z Drainage of Bladder with Drainage Device, Via Natural or Artificial Opening (ICD-10-PCS; principal; 2018-04-24)
PROC: 0DB98ZX Excision of Duodenum, Via Natural or Artificial Opening Endoscopic, Diagnostic (ICD-10-PCS; 2018-04-26)
PROC: 0DB68ZX Excision of Stomach, Via Natural or Artificial Opening Endoscopic, Diagnostic (ICD-10-PCS; 2018-04-26)
DX: K22.11 Ulcer of esophagus with bleeding (principal); E43 Unspecified severe protein-calorie malnutrition; A04.72 Enterocolitis due to Clostridium difficile, not specified as recurrent; L03.116 Cellulitis of left lower limb; N17.9 Acute kidney failure, unspecified; Z68.41 Body mass index [BMI] 40.0-44.9, adult; I48.92 Unspecified atrial flutter; N39.0 Urinary tract infection, site not specified; K26.4 Chronic or unspecified duodenal ulcer with hemorrhage; R19.5 Other fecal abnormalities; I12.9 Hypertensive chronic kidney disease with stage 1 through stage 4 chronic kidney disease, or unspecified chronic kidney disease; E11.22 Type 2 diabetes mellitus with diabetic chronic kidney disease; E11.51 Type 2 diabetes mellitus with diabetic peripheral angiopathy without gangrene; D64.9 Anemia, unspecified; E03.9 Hypothyroidism, unspecified; E78.5 Hyperlipidemia, unspecified; E83.42 Hypomagnesemia; E86.0 Dehydration; E87.6 Hypokalemia; G47.33 Obstructive sleep apnea (adult) (pediatric); I44.0 Atrioventricular block, first degree; K21.0 Gastro-esophageal reflux disease with esophagitis; M10.9 Gout, unspecified; N18.9 Chronic kidney disease, unspecified; Z80.0 Family history of malignant neoplasm of digestive organs; Z72.0 Tobacco use; Z79.4 Long term (current) use of insulin; Z90.710 Acquired absence of both cervix and uterus
CPT/HCPCS: 36415; 71045; 74177; 80048; 80053; 81001; 82272; 82962; 83605; 83690; 83735; 84100; 84484; 85025; 87040; 87324; 87493; 88305; 93005; 96361; 96365; 96375; G0378; J0696; J1650; J2250; J2405; J3010; J3370; Q9967; J1815; J3475; J7030

== ENCOUNTER → 2018-11-27 | Outpatient (CLI) | payer MEDICARE, OTHER ==
[~2018-11-27] MED LIST changes: +AMLO-150 PO; -AMLO10TA6 PO; +AMLO10TA8 PO; -AMLO5TAB7 PO; -CLON0.1T PO; +CLON0.1T22 PO; +LOSA50TA14 PO; -LOSA50TA7 PO; +OMEP-110 PO; +OMNIPAQUE 350 MG/ML, 100ML BOTTLE ONE; +SULF1TAB24 PO; +VANC1VIA3 PO
== END | disposition home or self-care (01) ==
LOC: PETCFH 11:02
PROVIDERS: ATTEND Surgery
DX: C50.811 Malignant neoplasm of overlapping sites of right female breast (principal); J84.10 Pulmonary fibrosis, unspecified
CPT/HCPCS: 71260; 74177; 78306; 82565; A9503; Q9967

== ENCOUNTER → 2018-12-11 | Outpatient (CLI) | payer MEDICARE, OTHER ==
[~2018-12-11] MED LIST changes: +CARV6.252 PO; +OMEP20TA62 PO; -OMNIPAQUE 350 MG/ML, 100ML BOTTLE ONE
[2018-12-11 11:38] LABS: BASOPHILS # (AUTO) 0.05 x10^3/uL (0-0.1); BASOPHILS % (AUTO) 1 % (0-1); EOSINOPHILS # (AUTO) 0.21 x10^3/uL (0-0.4); EOSINOPHILS % (AUTO) 2 % (1-7); LYMPHOCYTES # (AUTO) 1.55 x10^3/uL (1-3.4); LYMPHOCYTES % (AUTO) 15 % (22-44); MD NO; MEAN CORPUSCULAR HEMOGLOBIN 29.7 pg (27.0-34.8); MEAN CORPUSCULAR HGB CONC 31.6 g/dL (32.4-35.8); MEAN CORPUSCULAR VOLUME 94.1 fL (80-100); MEAN PLATELET VOLUME 8.2 fL (7.4-10.4); MONOCYTES # (AUTO) 0.73 x10^3/uL (0.2-0.8); MONOCYTES % (AUTO) 7 % (2-9); NEUTROPHILS # (AUTO) 7.53 x10^3/uL (1.8-6.8); NEUTROPHILS % (AUTO) 75 % (42-75); PLATELET COUNT 275 x10^3/uL (130-400); RED BLOOD COUNT 4.31 x10^6/uL (3.82-5.3); RED CELL DISTRIBUTION WIDTH 17.4 % (9.6-15.2)
[2018-12-11 11:51] LABS: ALBUMIN 3.4 g/dL (3.4-5.0); ANION GAP 8 mmol/L (5-15); CALCIUM 9.8 mg/dL (8.5-10.1); CHLORIDE 109 mmol/L (98-107)
[2018-12-11 11:55] LABS: ALANINE AMINOTRANSFERASE 21 U/L (12-78); ALKALINE PHOSPHATASE 192 U/L (45-117); BILIRUBIN,TOTAL 0.5 mg/dL (0.2-1.0); CREATININE 1.16 mg/dL (0.55-1.02); TOTAL PROTEIN 6.1 g/dL (6.4-8.2)
== END | disposition home or self-care (01) ==
LOC: STAR 09:34
PROVIDERS: ATTEND Surgery
DX: Z01.812 Encounter for preprocedural laboratory examination (principal); C50.811 Malignant neoplasm of overlapping sites of right female breast; I44.0 Atrioventricular block, first degree
CPT/HCPCS: 36415; 80053; 85025; 93005

== ENCOUNTER 2018-12-19 07:03 | Day surgery (SDC) | payer MEDICARE, OTHER ==
[2018-12-11 11:00] VITALS: BP 202/74
[~2018-12-19] VITALS: Ht 157.5 cm; Wt 98.5 kg
[~2018-12-19 07:03] MED LIST changes: +ACET1TAB64 PO; +BIOT25005 PO; +CYAN100072 PO; +LACT1CAP35 PO; +MULT-709 PO; +ZINC50CA PO
[2018-12-19] MEDS ORDERED: LACTATED RINGERS 1,000 ML IV SCH (08:19)
[2018-12-19] MEDS ORDERED: SCOPOLAMINE PATCH, 1.5MG PATCH.TD72 TD ONE (08:30)
[2018-12-19] MEDS ORDERED: ONDANSETRON 2MG/ML, 2ML IVPush ONE (08:30)
[2018-12-19] MEDS ORDERED: GABAPENTIN 300 MG CAPSULE PO ONE (08:30)
[2018-12-19] MEDS ORDERED: ACETAMINOPHEN 500 MG TABLET PO ONE (08:30)
[2018-12-19] MEDS ORDERED: ISOSULFAN BLUE 10 MG/ML, 5ML IV ONE (08:56)
[2018-12-19] MEDS ORDERED: BUPIVACAINE/PF-EPI 0.5% 1:200K ONE (08:56)
[2018-12-19] MEDS ORDERED: FENTANYL PF 250 MCG/5ML ONE (09:48)
[2018-12-19] MEDS ORDERED: PROCHLORPERAZINE 5 MG/ML, 2ML IV PRN (10:00)
[2018-12-19] MEDS ORDERED: HALOPERIDOL 5 MG/ML IV PRN (10:00)
[2018-12-19] MEDS ORDERED: DIPHENHYDRAMINE 50 MG/ML, 1ML IVPush PRN (10:00)
[2018-12-19] MEDS ORDERED: hydrALAzine 20 MG/ML, 1ML IV PRN (10:00)
[2018-12-19] MEDS ORDERED: METOPROLOL 1 MG/ML, 5ML IV PRN (10:00)
[2018-12-19] MEDS ORDERED: PROMETHAZINE 25 MG/ML, 1ML IV PRN (10:00)
[2018-12-19] MEDS ORDERED: HYDROmorphone 2 MG/ML, 1ML IVPush PRN (10:00)
[2018-12-19] MEDS ORDERED: FENTANYL PF 100 MCG/2ML IV PRN (10:00)
[2018-12-19] MEDS ORDERED: LABETALOL 5MG/ML, 20ML IV PRN (10:00)
[2018-12-19] MEDS ORDERED: OXYcodone 5 MG/5 ML ORAL.SOL UDC PO PRN (10:00)
[2018-12-19] MEDS ORDERED: EPHEDRINE 50 MG/ML, 1ML ONE (10:00)
[2018-12-19] MEDS ORDERED: DEXAMETHASONE 4 MG/ML, 1ML ONE (11:09)
[2018-12-19] MEDS ORDERED: SUCCINYLCHOLINE 20 MG/ML, 10ML ONE (11:09)
[2018-12-19] MEDS ORDERED: PROPOFOL 10 MG/ML, 20ML ONE (11:09)
[2018-12-19] MEDS ORDERED: ROCURONIUM 10MG/ML,5ML ONE (11:09)
[2018-12-19] MEDS ORDERED: GLYCOPYRROLATE 0.2MG/1ML, 5ML ONE (11:09)
[2018-12-19] MEDS ORDERED: CEFAZOLIN 1,000 MG ONE (11:09)
[2018-12-19] MEDS ORDERED: NEOSTIGMINE 1 MG/ML, 10ML ONE (11:09)
[2018-12-19] MEDS ORDERED: ONDANSETRON 2MG/ML, 2ML ONE (11:09)
[2018-12-19] MEDS ORDERED: OXYcodone 5 MG/5 ML ORAL.SOL UDC ONE (12:06)
[2018-12-19] MEDS ORDERED: hydrALAzine 20 MG/ML, 1ML ONE (12:13)
== END 2018-12-19 16:20 | disposition home or self-care (01) ==
LOC: OUT 07:03
PROVIDERS: ATTEND Surgery
DX: C50.911 Malignant neoplasm of unspecified site of right female breast (principal); C77.3 Secondary and unspecified malignant neoplasm of axilla and upper limb lymph nodes; N64.89 Other specified disorders of breast; E11.22 Type 2 diabetes mellitus with diabetic chronic kidney disease; I12.9 Hypertensive chronic kidney disease with stage 1 through stage 4 chronic kidney disease, or unspecified chronic kidney disease; N18.9 Chronic kidney disease, unspecified; K21.9 Gastro-esophageal reflux disease without esophagitis; E78.5 Hyperlipidemia, unspecified; E03.9 Hypothyroidism, unspecified; G47.33 Obstructive sleep apnea (adult) (pediatric); I73.9 Peripheral vascular disease, unspecified; E66.01 Morbid (severe) obesity due to excess calories; Z68.41 Body mass index [BMI] 40.0-44.9, adult; Z17.0 Estrogen receptor positive status [ER+]; Z79.4 Long term (current) use of insulin; Z79.890 Hormone replacement therapy; Z79.82 Long term (current) use of aspirin; Z79.899 Other long term (current) drug therapy; Z83.3 Family history of diabetes mellitus; Z82.49 Family history of ischemic heart disease and other diseases of the circulatory system
CPT/HCPCS: 19307; 38792; 76098; 82962; 88307; 88333; 88342; A9541; C1729; J0330; J0360; J0690; J1100; J2405; J2704; J2710; J3010; J7120